=== PATIENT | male | born 1970 | race Caucasian/White ===

== ENCOUNTER 2016-04-25 18:47 | Emergency (ER) | payer OTHER, BC ==
[~2016-04-25] VITALS: Ht 180.3 cm; Wt 74.8 kg
[~2016-04-25 18:47] MED LIST: LOSA25TA4 PO; NAPR250T2 PO; ONDA4TAB7 PO; OXYC-244 PO; TAMS0.4C97 PO
[2016-04-25] MEDS ORDERED: IV NORMAL SALINE 1000ML BAG 1,000 ML IV SCH (19:30)
[2016-04-25] MEDS ORDERED: ONDANSETRON PF 4 MG/2 ML VIAL. IV ONE (19:30)
[2016-04-25] MEDS ORDERED: MORPHINE SULFATE 4 MG/ML DISP.SYRIN. IV ONE (19:30)
--- NOTE | 2016-04-25 19:30 | PHYS DOC ---
Past Medical History Past Medical History: Kidney Stone Past Surgical History: No Surgical History Alcohol Use: None Drug Use: None Adult General Chief Complaint Chief Complaint: FLANK PAIN HPI HPI Patient is a 45 year old male who presents with flank pain. Patient reports this morning ~0630 he had onset of L flank pain. He describes a diffuse achy pain in his L flank and LLQ that is similar to prior kidney stones. No clear mitigating factors. He took ibuprofen at home with insufficient relief. No urinary symptoms. Has h/o multiple stones; the last was in January. He estimates ~10 stones in the past, all have passed without intervention such as lithotripsy. No other acute complaints. Review of Systems Review of Systems Constitutional: Denies fever or chills Eyes: Denies change in visual acuity or eye pain HENT: Denies nasal congestion or sore throat Respiratory: Denies cough or shortness of breath Cardiovascular: Denies chest pain GI: LLQ pain. Denies nausea, vomiting, bloody stools or diarrhea : Denies dysuria or hematuria Musculoskeletal: L flank pain Integument: Denies rash or skin lesions Neurologic: Denies headache, focal weakness or sensory changes Current Medications Current Medications Current Medications Medications (Trade) Dose Ordered Sig/Monica Start Time Stop Time Status Last Admin Dose Admin Hydromorphone HCl (Dilaudid) 1 mg 1X ONCE 04/25/16 21:30 04/25/16 21:31 DC 04/25/16 21:28 1 MG Ketorolac Tromethamine (Toradol) 15 mg 1X ONCE 04/25/16 20:15 04/25/16 20:16 DC 04/25/16 20:15 15 MG Morphine Sulfate 4 mg 1X ONCE 04/25/16 19:30 04/25/16 19:34 DC 04/25/16 19:54 4 MG Ondansetron HCl (Zofran) 4 mg 1X ONCE 04/25/16 19:30 04/25/16 19:34 DC 04/25/16 19:53 4 MG Sodium Chloride (Iv Sodium Chloride 0.9% 1000ml Bag) 1,000 ml @ 1,000 mls/hr Q1H 04/25/16 19:30 04/25/16 20:29 DC 04/25/16 19:53 1,000 MLS/HR Allergies Allergies Allergies Coded Allergies Type Severity Reaction Last Updated Verified No Known Drug Allergies 07/14/15 No Physical Exam Physical Exam Constitutional: Well developed, well nourished, no acute distress, non-toxic appearance HENT: Normocephalic, atraumatic, bilateral external ears normal Eyes: EOMI, conjunctiva normal, no discharge Neck: Normal range of motion, no stridor Cardiovascular: Tachycardic, regular rhythm, no murmur Lungs & Thorax: Bilateral breath sounds clear to auscultation Abdomen: Bowel sounds normal, soft, non-distended, LLQ TTP without guarding or rebound Skin: Warm, dry, no erythema, no rash Back: L CVA tenderness Extremities: No obvious deformity, no edema Neurologic: Alert and oriented X 3, no gross deficits noted Current Patient Data Vital Signs Vital Signs Date Time Temp Pulse Resp B/P Pulse Ox O2 Delivery O2 Flow Rate FiO2 04/25/16 22:12 92 19 150/97 97 04/25/16 21:28 Room Air 04/25/16 19:10 98.8 98.8 Lab Values Laboratory Tests Test 04/25/16 19:45 04/25/16 20:35 White Blood Count 12.8x10^3/uL (4.0-11.0) H Red Blood Count 5.11x10^6/uL (4.30-5.70) Hemoglobin 15.6g/dL (13.0-17.5) Hematocrit 45.4% (39.0-53.0) Mean Corpuscular Volume 89fL (79-100) Mean Corpuscular Hemoglobin 31pg (25-35) Mean Corpuscular Hemoglobin Concent 34g/dL (31-37) Red Cell Distribution Width 12.7% (11.5-14.5) Platelet Count 251x10^3/uL (140-400) Neutrophils (%) (Auto) 83% (31-73) H Lymphocytes (%) (Auto) 11% (24-48) L Monocytes (%) (Auto) 5% (0-9) Eosinophils (%) (Auto) 0% (0-3) Basophils (%) (Auto) 1% (0-3) Neutrophils # (Auto) 10.6x10^3uL (1.8-7.7) H Lymphocytes # (Auto) 1.4x10^3/uL (1.0-4.8) Monocytes # (Auto) 0.6x10^3/uL (0.0-1.1) Eosinophils # (Auto) 0.0x10^3/uL (0.0-0.7) Basophils # (Auto) 0.1x10^3/uL (0.0-0.2) Sodium Level 141mmol/L (136-145) Potassium Level 3.9mmol/L (3.5-5.1) Chloride Level 102mmol/L (98-107) Carbon Dioxide Level 24mmol/L (21-32) Anion Gap 15 (6-14) H Blood Urea Nitrogen 22mg/dL (8-26) Creatinine 1.2mg/dL (0.7-1.3) Estimated GFR (Cockcroft-Gault) 66.1 Glucose Level 101mg/dL (70-99) H Calcium Level 10.3mg/dL (8.5-10.1) H Urine Collection Type Unknown Urine Color Yellow Urine Clarity Clear Urine pH 5.5 Urine Specific [place] <=1.005 Urine Protein Negativemg/dL (NEG-TRACE) Urine Glucose (UA) Negativemg/dL (NEG) Urine Ketones (Stick) 15mg/dL (NEG) Urine Blood Large (NEG) Urine Nitrite Negative (NEG) Urine Bilirubin Negative (NEG) Urine Urobilinogen Dipstick 0.2mg/dL (0.2 mg/dL) Urine Leukocyte Esterase Negative (NEG) Urine RBC 11-20/HPF (0-2) Urine WBC 0/HPF (0-4) Urine Bacteria 0/HPF (0-FEW) Urine Mucus Slight/LPF Laboratory Tests 04/25/16 19:45 Laboratory Tests 04/25/16 19:45 EKG EKG [] Radiology/Procedures Radiology/Procedures Left renal US: IMPRESSION 1. There is mild left hydronephrosis and hydroureter. There is likely calculus of the left kidney, also separate echogenic focus which may be due to angiomyolipoma. Course & Med Decision Making Course & Med Decision Making Pertinent Labs and Imaging studies reviewed. (See chart for details) Patient is 45 year old male who presents with L flank pain. Suspect kidney stone , especially given h/o same. Will check labs, UA. Will obtain renal US so as to avoid ionizing radiation (patient estimates ~10 CT scans of his abdomen for past stones). IVF bolus, pain meds, nausea meds ordered. Imaging results as above. UA shows hematuria but no evidence of infection. Labs notable for mild leukocytosis. Creatinine at baseline. Discussed results with patient. Patient required multiple dose of IV pain medication to adequately control pain; after the final dose he says pain significantly improved. Discussed option of discharge with urology follow up as outpatient and oral meds to control symptoms vs admission for pain control with IV meds. Patient would like to go home and try to control pain at home. As such, will discharge with rx for percocet, naproxen, flomax, zofran ODT. Patient given instructions for close follow up with urology and strict return precautions if pain uncontrolled or if new symptoms develop. Dragon Disclaimer Dragon Disclaimer This electronic medical record was generated, in whole or in part, using a voice recognition dictation system. Departure Departure Impression: Primary Impression: Kidney stone Disposition: HOME, SELF-CARE Condition: IMPROVED Referrals: KERA KELLY DO (PCP) RIVER KLEIN DO Patient Instructions: Kidney Stones Additional Instructions: Thank you for allowing us to provide care today in the Emergency Department. Take the provided medication as directed. Use caution after taking the narcotic pain medication as it can make you drowsy. Schedule a follow up appointment with a urologist (Dr. Klein) using the provided contact information as soon as possible. Return promptly to the Emergency Department if you develop any new or concerning symptoms. Scripts Ondansetron (Zofran Odt)4 Mg Tab.rapdis1 Tab SL Q8HRS PRN NAUSEA #15 TAB Prov:BENJAMIN OLIVEROS MD 04/25/16 Tamsulosin Hcl (Flomax)0.4 Mg Cap.er.24h0.4 Mg PO DAILY #14 TAB Prov:BENJAMIN OLIVEROS MD 04/25/16 Oxycodone/Apap 5-325 (Percocet 5-325 Mg Tablet)1 Each Tablet1-2 Tab PO Q6HRS PRN PAIN #30 TAB Prov:BENJAMIN OLIVEROS MD 04/25/16 Naproxen 375 Mg Kojxea644 Mg PO BID PRN PAIN #20 Prov:BENJAMIN OLIVEROS MD 04/25/16 BENJAMIN OLIVEROS MD Apr 25, 2016 19:29
[2016-04-25 19:52] LABS: BASO # 0.1 x10^3/uL (0.0-0.2); BASO % 1 % (0-3); EOS % 0 % (0-3); HEMATOCRIT 45.4 % (39.0-53.0); HEMOGLOBIN 15.6 g/dL (13.0-17.5); LYMPH # 1.4 x10^3/uL (1.0-4.8); LYMPH % 11 % (24-48); MEAN CORPUSCULAR HEMOGLOBIN 31 pg (25-35); MEAN CORPUSCULAR HGB CONC 34 g/dL (31-37); MEAN CORPUSCULAR VOLUME 89 fL (79-100); MONO % 5 % (0-9); NEUT % 83 % (31-73); PLATELET COUNT 251 x10^3/uL (140-400); RED BLOOD COUNT 5.11 x10^6/uL (4.30-5.70); RED CELL DISTRIBUTION WIDTH 12.7 % (11.5-14.5); WHITE BLOOD COUNT 12.8 x10^3/uL (4.0-11.0)
[2016-04-25 20:03] LABS: CALCIUM 10.3 mg/dL (8.5-10.1); CREATININE 1.2 mg/dL (0.7-1.3); GFR 66.1; POTASSIUM 3.9 mmol/L (3.5-5.1)
[2016-04-25] MEDS ORDERED: KETOROLAC 15 MG/ML VIAL. IV ONE (20:15)
[2016-04-25] MEDS ORDERED: HYDROMORPHONE 2 MG/ML VIAL. IV ONE ×2 (20:15→21:30)
--- NOTE | 2016-04-25 20:26 | RAD ---
PROCEDURE Left renal ultrasound HISTORY Left flank pain for 13 hours COMPARISON None FINDINGS Multiple sonographic images of the left kidney and urinary bladder are submitted. Right kidney was not imaged. Left kidney measured up to 12.4 by 4.9 x 6 centimeters. There is mild left hydronephrosis, also mild proximal left hydroureter. There is echogenic focus of the midpole left kidney up to 0.5 centimeters, probably calculus as there is some shadowing. There is also echogenic focus of the mid to inferior left kidney up to 0.7 cm greatest dimension. Urinary bladder morphology is within normal limits. Ureteral jets are seen bilaterally in the urinary bladder lumen. IMPRESSION 1. There is mild left hydronephrosis and hydroureter. There is likely calculus of the left kidney, also separate echogenic focus which may be due to angiomyolipoma. Electronically signed by: Ata Pabon MD (Apr 25, 2016 20:25:35)
[2016-04-25 20:54] LABS: BILIRUBIN,URINE NEGATIVE (NEG); GLUCOSE,URINE NEGATIVE (NEG); NITRITE,URINE NEGATIVE (NEG); PH,URINE 5.5; PROTEIN,URINE NEGATIVE (NEG-TRACE); UROBILINOGEN,URINE 0.2 mg/dL (0.2 mg/dL)
[2016-04-25 20:55] LABS: BACTERIA,URINE 0 /HPF (0-FEW); WBC,URINE 0 /HPF (0-4)
[2016-04-25 22:12] VITALS: BP 150/97
[2016-04-25] MEDS ORDERED: NAPR375T3 PO (22:22)
[2016-04-25] MEDS ORDERED: ONDA4TAB10 SL (22:22)
[2016-04-25] MEDS ORDERED: OXYC-323 PO (22:22)
[2016-04-25] MEDS ORDERED: TAMS0.4C97 PO (22:22)
== END 2016-04-25 22:50 | disposition home or self-care (01) ==
LOC: ER 18:47
DX: N20.0 Calculus of kidney (principal)
CPT/HCPCS: 36415; 76775; 80048; 81001; 85027; 96361; 96374; 96375; 96376; 99285; J1170; J1885; J2270; J2405; J7030

== ENCOUNTER 2016-04-26 21:46 | Inpatient (IN) | payer OTHER, BC ==
[~2016-04-26] VITALS: Ht 180.3 cm; Wt 79.5 kg
[~2016-04-26 21:46] MED LIST changes: +NAPR375T3 PO; +ONDA4TAB10 SL; +OXYC-323 PO
[2016-04-26] MEDS ORDERED: IV NORMAL SALINE 1000ML BAG 1,000 ML IV SCH (23:00)
[2016-04-26] MEDS ORDERED: ONDANSETRON PF 4 MG/2 ML VIAL. IV ONE (23:00)
[2016-04-26 23:07] LABS: BILIRUBIN,URINE NEGATIVE (NEG); GLUCOSE,URINE NEGATIVE (NEG); NITRITE,URINE NEGATIVE (NEG); PH,URINE 5.5; PROTEIN,URINE NEGATIVE (NEG-TRACE); UROBILINOGEN,URINE 0.2 mg/dL (0.2 mg/dL)
[2016-04-26] MEDS: MORPHINE SULFATE 4 MG/ML DISP.SYRIN. IV/SQ PRN (23:12)
[2016-04-26 23:19] LABS: BACTERIA,URINE 0 /HPF (0-FEW); SQUAMOUS EPITHELIAL CELL,UR FEW /LPF
[2016-04-26 23:25] LABS: BASO # 0.1 x10^3/uL (0.0-0.2); BASO % 1 % (0-3); EOS % 1 % (0-3); HEMATOCRIT 41.8 % (39.0-53.0); HEMOGLOBIN 14.4 g/dL (13.0-17.5); LYMPH # 2.1 x10^3/uL (1.0-4.8); LYMPH % 19 % (24-48); MEAN CORPUSCULAR HEMOGLOBIN 31 pg (25-35); MEAN CORPUSCULAR HGB CONC 34 g/dL (31-37); MEAN CORPUSCULAR VOLUME 90 fL (79-100); MONO % 9 % (0-9); NEUT % 71 % (31-73); PLATELET COUNT 203 x10^3/uL (140-400); RED BLOOD COUNT 4.65 x10^6/uL (4.30-5.70); RED CELL DISTRIBUTION WIDTH 13.1 % (11.5-14.5); WHITE BLOOD COUNT 11.2 x10^3/uL (4.0-11.0)
[2016-04-26 23:37] LABS: CALCIUM 9.3 mg/dL (8.5-10.1); CREATININE 1.8 mg/dL (0.7-1.3); GFR 41.4; POTASSIUM 3.8 mmol/L (3.5-5.1)
[2016-04-26 23:43] LABS: ALBUMIN 4.1 g/dL (3.4-5.0); ALBUMIN/GLOBULIN RATIO 1.1 (1.0-1.7); TOTAL BILIRUBIN 0.6 mg/dL (0.2-1.0); TOTAL PROTEIN 7.7 g/dL (6.4-8.2)
--- NOTE | 2016-04-26 23:56 | RAD ---
PROCEDURE CT abdomen and pelvis without contrast HISTORY Left flank pain, history of renal calculi TECHNIQUE Exposure: One or more of the following individualized dose reduction techniques were utilized for this exam: 1. Automated exposure control. 2. Adjustment of the mA and/or kV according to patient size. 3. Use of iterative reconstruction technique. Helical noncontrast CT imaging of the abdomen and pelvis was acquired COMPARISON No prior FINDINGS Abdomen: Bilateral nephrolithiasis with small renal calculi measuring 2-3 millimeters in size. Mild left renal hydronephrosis associated with a 3 millimeter ureterovesical junction calculus with perinephric and periureteral edema. Liver, gallbladder, spleen, adrenals and pancreas are unremarkable. No bowel obstruction or inflammation. The appendix is not identified. Mild distention of the lower abdominal small bowel loops could represent mild ileus due to ureteral inflammation. Aorta and iliac artery calcified plaque. No abdominal free fluid. Lung bases and bones are unremarkable. Pelvis: 3 millimeter left ureterovesical junction calculus. Prostate, rectum and bones are unremarkable. No pelvic fluid. IMPRESSION 1. Mild left renal hydronephrosis and perinephric and periureteral edema due to a 3 millimeter ureterovesical junction calculus. 2. Bilateral nephrolithiasis. Electronically signed by: Kai Zamora MD (Apr 26, 2016 23:55:21)
[2016-04-27] MEDS: MORPHINE SULFATE 4 MG/ML DISP.SYRIN. IV/SQ PRN (00:30)
[2016-04-27] MEDS ORDERED: HYDROMORPHONE 2 MG/ML VIAL. IV ONE (01:00)
[2016-04-27] MEDS ORDERED: KETOROLAC 15 MG/ML VIAL. IV PRN (01:30)
[2016-04-27] MEDS ORDERED: ACETAMINOPHEN 325 MG TABLET. PO PRN (01:30)
[2016-04-27] MEDS ORDERED: ONDANSETRON PF 4 MG/2 ML VIAL. IV PRN (01:30)
--- NOTE | 2016-04-27 01:40 | ED.ADGEN ---
Past Medical History Past Medical History: Hypertension, Kidney Stone Past Surgical History: Tonsillectomy Alcohol Use: None Drug Use: None Adult General Chief Complaint Chief Complaint: FLANK PAIN HPI HPI Patient is a 45 year old man, history of hypertension, renal calculi, who presents to the emergency department with complaint of persistent abdominal pain despite analgesia after a visit to the emergency department yesterday which revealed evidence of recurrent left-sided renal calculi. Patient states pain began earlier that day, located in the left abdomen and left flank, denies any fevers or chills, complains of nausea but no vomiting, no diarrhea. Denies any injuries. States he been using Flomax, Percocet at home without relief. Has not previously required lithotripsy and does not have a urologist. States he was taking medications as directed. Noted to be uncomfortable in appearance, hypertensive in the emergency department. Review of Systems Review of Systems Constitutional: Denies fever or chills. [] Eyes: Denies change in visual acuity. [] HENT: Denies nasal congestion or sore throat. [] Respiratory: Denies cough or shortness of breath. [] Cardiovascular: Denies chest pain or edema. [] GI: Denies vomiting, bloody stools or diarrhea. [] Left lower quadrant and left flank abdominal pain. : Denies dysuria. [] Musculoskeletal: Denies back pain or joint pain. [] Integument: Denies rash. [] Neurologic: Denies headache, focal weakness or sensory changes. [] Endocrine: Denies polyuria or polydipsia. [] Lymphatic: Denies swollen glands. [] Psychiatric: Denies depression or anxiety. [] Current Medications Current Medications Current Medications Medications (Trade) Dose Ordered Sig/Monica Start Time Stop Time Status Last Admin Dose Admin Morphine Sulfate 4 mg 4 mg PRN Q15MIN PRN 04/26/16 23:00 04/27/16 03:00 04/27/16 00:30 4 MG Ondansetron HCl (Zofran) 4 mg 1X ONCE 04/26/16 23:00 04/26/16 23:01 DC 04/26/16 23:12 4 MG Sodium Chloride (Iv Sodium Chloride 0.9% 1000ml Bag) 1,000 ml @ 1,000 mls/hr Q1H 04/26/16 23:00 04/26/16 23:59 DC 04/26/16 23:11 1,000 MLS/HR Allergies Allergies Allergies Coded Allergies Type Severity Reaction Last Updated Verified No Known Drug Allergies 07/14/15 No Physical Exam Physical Exam Constitutional: Well developed, well nourished, no acute distress, non-toxic appearance. [] HENT: Normocephalic, atraumatic, bilateral external ears normal, oropharynx moist, no oral exudates, nose normal. [] Eyes: PERRLA, EOMI, conjunctiva normal, no discharge. [] Neck: Normal range of motion, no tenderness, supple, no stridor. [] Cardiovascular:Heart rate regular rhythm, no murmur [] Lungs & Thorax: Bilateral breath sounds clear to auscultation [] Abdomen: Bowel sounds normal, soft, left lower quadrant tenderness palpation, no rebound, rigidity, no guarding, no masses, no pulsatile masses. [] Skin: Warm, dry, no erythema, no rash. [] Back: No midline or paraspinal tenderness, left-sided CVA tenderness. Extremities: No tenderness, no cyanosis, no clubbing, ROM intact, no edema. [] Neurologic: Alert and oriented X 3, normal motor function, normal sensory function, no focal deficits noted. [] Psychologic: Affect normal, judgement normal, mood normal. [] Current Patient Data Vital Signs Vital Signs Date Time Temp Pulse Resp B/P Pulse Ox O2 Delivery O2 Flow Rate FiO2 04/27/16 00:32 95 18 195/113 98 Room Air 04/26/16 23:18 98.0 98.0 Lab Values Laboratory Tests Test 04/26/16 22:25 04/26/16 23:15 Urine Collection Type Unknown Urine Color Yellow Urine Clarity Cloudy Urine pH 5.5 Urine Specific [place] 1.010 Urine Protein Negativemg/dL (NEG-TRACE) Urine Glucose (UA) Negativemg/dL (NEG) Urine Ketones (Stick) Negativemg/dL (NEG) Urine Blood Negative (NEG) Urine Nitrite Negative (NEG) Urine Bilirubin Negative (NEG) Urine Urobilinogen Dipstick 0.2mg/dL (0.2 mg/dL) Urine Leukocyte Esterase Negative (NEG) Urine RBC 1-2/HPF (0-2) Urine WBC 1-4/HPF (0-4) Urine Squamous Epithelial Cells Few/LPF Urine Bacteria 0/HPF (0-FEW) White Blood Count 11.2x10^3/uL (4.0-11.0) H Red Blood Count 4.65x10^6/uL (4.30-5.70) Hemoglobin 14.4g/dL (13.0-17.5) Hematocrit 41.8% (39.0-53.0) Mean Corpuscular Volume 90fL (79-100) Mean Corpuscular Hemoglobin 31pg (25-35) Mean Corpuscular Hemoglobin Concent 34g/dL (31-37) Red Cell Distribution Width 13.1% (11.5-14.5) Platelet Count 203x10^3/uL (140-400) Neutrophils (%) (Auto) 71% (31-73) Lymphocytes (%) (Auto) 19% (24-48) L Monocytes (%) (Auto) 9% (0-9) Eosinophils (%) (Auto) 1% (0-3) Basophils (%) (Auto) 1% (0-3) Neutrophils # (Auto) 7.9x10^3uL (1.8-7.7) H Lymphocytes # (Auto) 2.1x10^3/uL (1.0-4.8) Monocytes # (Auto) 1.0x10^3/uL (0.0-1.1) Eosinophils # (Auto) 0.1x10^3/uL (0.0-0.7) Basophils # (Auto) 0.1x10^3/uL (0.0-0.2) Sodium Level 141mmol/L (136-145) Potassium Level 3.8mmol/L (3.5-5.1) Chloride Level 104mmol/L (98-107) Carbon Dioxide Level 28mmol/L (21-32) Anion Gap 9 (6-14) Blood Urea Nitrogen 23mg/dL (8-26) Creatinine 1.8mg/dL (0.7-1.3) H Estimated GFR (Cockcroft-Gault) 41.4 BUN/Creatinine Ratio 13 (6-20) Glucose Level 118mg/dL (70-99) H Calcium Level 9.3mg/dL (8.5-10.1) Total Bilirubin 0.6mg/dL (0.2-1.0) Aspartate Amino Transferase (AST) 20U/L (15-37) Alanine Aminotransferase (ALT) 29U/L (16-63) Alkaline Phosphatase 63U/L (46-116) Total Protein 7.7g/dL (6.4-8.2) Albumin 4.1g/dL (3.4-5.0) Albumin/Globulin Ratio 1.1 (1.0-1.7) Laboratory Tests 04/26/16 23:15 Laboratory Tests 04/26/16 23:15 EKG EKG ECG: Rhythm strip: Sinus rhythm, heart rate 110 beats minute, no ectopy. As interpreted by me. [] Radiology/Procedures Radiology/Procedures [] Impressions: [facility] [address] [place], [place] [id number] IMAGING REPORT Signed PATIENT: AMINATA YOUNG ACCOUNT: [id number] : 1970 LOCATION: ER AGE: 45 SEX: M EXAM STATUS: REG ER ORD. PHYSICIAN: YUNIER LYLES DO REASON: L flank pain/hx calculi PROCEDURE: ABDOMEN PELVIS WO CONTRAST PROCEDURE CT abdomen and pelvis without contrast HISTORY Left flank pain, history of renal calculi TECHNIQUE Exposure: One or more of the following individualized dose reduction techniques were utilized for this exam: 1. Automated exposure control. 2. Adjustment of the mA and/or kV according to patient size. 3. Use of iterative reconstruction technique. Helical noncontrast CT imaging of the abdomen and pelvis was acquired COMPARISON No prior FINDINGS Abdomen: Bilateral nephrolithiasis with small renal calculi measuring 2-3 millimeters in size. Mild left renal hydronephrosis associated with a 3 millimeter ureterovesical junction calculus with perinephric and periureteral edema. Liver, gallbladder, spleen, adrenals and pancreas are unremarkable. No bowel obstruction or inflammation. The appendix is not identified. Mild distention of the lower abdominal small bowel loops could represent mild ileus due to ureteral inflammation. Aorta and iliac artery calcified plaque. No abdominal free fluid. Lung bases and bones are unremarkable. Pelvis: 3 millimeter left ureterovesical junction calculus. Prostate, rectum and bones are unremarkable. No pelvic fluid. IMPRESSION 1. Mild left renal hydronephrosis and perinephric and periureteral edema due to a 3 millimeter ureterovesical junction calculus. 2. Bilateral nephrolithiasis. Electronically signed by: Elsie Zamora MD (Apr 26, 2016 23:55:21) DICTATED and SIGNED BY: ELSIE ZAMORA MD DATE: 04/26/16 9102 CC: YUNIER LYLES DO; KERA KELLY DO ~ Course & Med Decision Making Course & Med Decision Making Pertinent Labs and Imaging studies reviewed. (See chart for details) Ultrasound findings yesterday reviewed, patient noted to have mild hydronephrosis, mild leukocytosis at 12.8 also noted at that time, no evidence of infection in the urine. After discussion with patient, as his symptoms have worsened, we'll proceed with repeat CT scan of the abdomen, risk versus benefit of radiation as discussed. CT reveals mild hydronephrosis again, with a 3 mm obstructing stone, creatinine is slightly elevated at 1.8, leukocytosis has improved, patient again has no evidence of infection in the urine. Patient is received multiple doses of morphine, and a dose of Dilaudid in the ED, and is continuing to complain of severe pain. As he has failed outpatient treatment, and has required repetitive dosing of IV agents, will admit to the hospital for continued symptom management. Findings as above discussed with Dr. Lewis of internal medicine, patient accepted to her service as a full admission to the medical surgical floor with plan as stated. Dragon Disclaimer Dragon Disclaimer This electronic medical record was generated, in whole or in part, using a voice recognition dictation system. Departure Impression: Primary Impression: Kidney stone Additional Impression: Intractable pain Disposition: ADMITTED INPATIENT Condition: IMPROVED Problem Qualifiers YUNIER LYLES DO Apr 27, 2016 01:40
[2016-04-27] MEDS: IV NORMAL SALINE 1000ML BAG 1,000 ML IV SCH ×2 (02:19→10:32)
[2016-04-27] MEDS: FENTANYL PF 100 MCG/2 ML VIAL. IV PRN ×2 (02:36→03:25)
[2016-04-27 03:15] VITALS: BP 149/99
[2016-04-27] MEDS ORDERED: LOSA50TA2 PO (03:58)
[2016-04-27 07:00] VITALS: BP 135/91
[2016-04-27 11:00] VITALS: BP 138/97
--- NOTE | 2016-04-27 11:42 | PDOC ---
Provider Note Provider Note Urology: Consult dictated, if he goes home today he is to call me Thursday with f/u report RE; flank pain etc., may need to put him on OP surgery schedule My office # [phone] Thank-you, RIVER KLEIN DO Apr 27, 2016 11:42
[2016-04-27 12:27] VITALS: BP 138/97
[2016-04-27] MEDS ORDERED: LOSARTAN POTASSIUM 50 MG TABLET. PO SCH (12:30)
--- NOTE | 2016-04-27 18:04 | SSS ---
ADMIT DATE: 04/27/2016 CHIEF COMPLAINT: Flank pain. HISTORY OF PRESENT ILLNESS: The patient is a 45-year-old gentleman with history of renal stones who presented to the Emergency Room 2 days ago with flank pain and was diagnosed with multiple kidney stones and discharged with pain medication regimen. He, however, represented yesterday with the same complaints, worsening, not responding to p.o. meds and he was therefore admitted to get better control on his pain. By CT, a 3 mm stone was found in the ureterovesicular junction. This morning, the patient is actually doing much better, has not had any pain medication for the past 5 hours. PAST MEDICAL HISTORY: Renal stones, recurrent. FAMILY HISTORY: Father with renal stones as well. SOCIAL HISTORY: Lives with his and 3 daughters. No toxic habits. ALLERGIES: No known drug allergies. MEDICATIONS: MAR reconciled with home medications. REVIEW OF SYSTEMS: Essentially positive for flank pain, no hematuria that he could tell. Denies any dysuria, nausea, vomiting or other GI symptoms. Rest of 14 system review is totally normal. PHYSICAL EXAMINATION: VITAL SIGNS: This morning show a blood pressure of 135/91, heart rate of 102, respiratory rate 20. He is afebrile. GENERAL: This is a 45-year-old gentleman, well nourished, well developed, alert and oriented, in no acute distress. HEENT: Shows no scleral icterus. NECK: Supple, without any palpable lymphadenopathy. LUNGS: Clear to auscultation bilaterally. CARDIOVASCULAR: Regular rate and rhythm. ABDOMEN: Has positive bowel sounds, soft, nontender. Minimal tenderness to palpation on the left flank to percussion. EXTREMITIES: Show no edema, no clubbing, no cyanosis. SKIN: Warm, soft and dry. LABORATORY DATA: CBC with a WBC of 11.2, hemoglobin 14.4, platelets of 203. Chemistries with a BUN and creatinine of 23 and 1.8. Electrolytes within normal limits. LFTs within normal. Albumin is 4.1. Urine with trace blood. IMAGING STUDIES: CT of the abdomen and pelvis showed a mild left renal hydronephrosis and perinephric and periureteral edema due to a 3 mm ureterovesical junction calculus, bilateral nephrolithiasis. ASSESSMENT AND PLAN: The patient is a 45-year-old gentleman with recurrent kidney stones, now presenting in renal colic. It appears that he may have passed a stone earlier today as pain is resolved. Urology consult had been requested, but with resolution of his symptoms, it is no longer required. He will follow up with Dr. Feldman on an outpatient basis. He does have mild renal insufficiency, most likely related to the hydronephrosis. Advised him to drink plenty of fluids and this should resolve. DATE OF DISCHARGE: 04/27/2016. DISCHARGE DISPOSITION: To home. DISCHARGE CONDITION: Improved. DISCHARGE DIAGNOSES: Renal colic. DISCHARGE MEDICATIONS: Resume home medications. DISCHARGE INSTRUCTIONS: The patient will follow up with Dr. Feldman in 2 weeks. He will follow up with his PCP as needed. EUGENIA VELÁSQUEZ MD DR: ÁNGELA/nts JOB#: [id number] / [id number] KERA Infante DO MTDDave
[2016-04-27] MEDS ORDERED: TAMSULOSIN 0.4 MG CAP.ER.24H. PO SCH (21:00)
--- NOTE | 2016-04-27 23:58 | CONS ---
DATE OF CONSULTATION: 04/27/2016 CHIEF COMPLAINT: Acute left flank pain, distal left ureteral calculus. HISTORY OF PRESENT ILLNESS: A 45-year-old male with a history of kidney stones. He thinks he has had about 10 over the years. He was seen in the Emergency Room, evaluated and sent home on Flomax and pain medicine. His flank pain intensified and he had to come back to the Emergency Room at which time he was admitted for IV hydration and pain control. Evidently, the patient has passed all of his previous kidney stones and did not require any intervention. PAST MEDICAL HISTORY: Significant for hypertension and kidney stones. PAST SURGICAL HISTORY: He has had a tonsillectomy. MEDICATIONS: List was reviewed. ALLERGIES: No known drug allergies. PHYSICAL EXAMINATION: GENERAL DESCRIPTION: A 45-year-old male resting comfortably, states he has not had any pain this morning. ABDOMEN: Soft, nontender. Negative for flank pain to palpation bilaterally. There are no palpable abdominal masses. No suprapubic tenderness. RECTAL: Not performed today. MUSCULOSKELETAL: Good range of motion. Negative for cyanosis or edema. LABORATORY DATA: The patient's white blood cell count slightly elevated at 11.2. His hemoglobin 14.4, hematocrit 41.8, platelet count was adequate. The patient's electrolytes were normal. His creatinine was elevated at 1.8 and his BUN was 23, glucose 118. Urinalysis, manoj in color, 1-2 red blood cells per high power field, 1-4 white blood cells, negative for bacteria. X-RAY STUDIES: Noncontrast CT scan was performed which reveals mild left renal hydronephrosis and a 3-mm calculus at the left ureterovesical junction. The patient also has bilateral nephrolithiasis. IMPRESSION: 1. Acute left renal colic -- improved. 2. Distal left ureteral calculus 3 mm at ureterovesical junction. 3. Bilateral nephrolithiasis. PLAN: 1. The patient is asymptomatic this morning. If he remains asymptomatic, he should be able to go home on Flomax and pain medicine and push the fluids. I have asked him to call me the following day to let me know if he passes stone and if his pain is completely resolved. If not, I will put him on outpatient schedule for ureteroscopy, stone extraction. 2. He needs a metabolic workup which we can do in the office given his history of multiple kidney stones and the fact that he has bilateral nephrolithiasis. It was discussed with the patient. He appears to understand and is agreeable. Thank you for the opportunity to participate in evaluation of this patient. RIVER KLEIN DO DR: Cindy JOB#: [id number] / [id number]
[2016-04-28] MEDS ORDERED: LOSARTAN POTASSIUM 50 MG TABLET. PO SCH (09:00)
== END 2016-04-27 13:55 | disposition home or self-care (01) | DRG 694 ==
LOC: ER 21:46 → 4 NORTH 04-27 00:49
PROVIDERS: ADMIT Internal Medicine Hematology & Oncology; ATTEND Internal Medicine Hematology & Oncology
DX: N13.2 Hydronephrosis with renal and ureteral calculous obstruction (principal); I10 Essential (primary) hypertension; Z87.442 Personal history of urinary calculi; Z98.890 Other specified postprocedural states; Z79.899 Other long term (current) drug therapy
CPT/HCPCS: 36415; 74176; 80053; 81001; 85027; J1170; J1885; J2270; J2405; J3010; J7030; 99285-25

== ENCOUNTER 2018-09-24 13:52 | Emergency (ER) | payer OTHER, BC ==
[~2018-09-24] VITALS: Ht 180.3 cm; Wt 77.1 kg
[~2018-09-24 13:52] MED LIST changes: +LOSA-73 PO; -LOSA25TA4 PO; +LOSA25TA54 PO; +NAPR-695 PO; -NAPR250T2 PO; +NAPR250T6 PO; -NAPR375T3 PO; -OXYC-244 PO; -OXYC-323 PO; +OXYC1TAB15 PO; +OXYC1TAB19 PO
--- NOTE | 2018-09-24 15:14 | PHYS DOC ---
Past Medical History Past Medical History: Hypertension, Kidney Stone Past Surgical History: Tonsillectomy Alcohol Use: None Drug Use: None Adult General Chief Complaint Chief Complaint: FLANK PAIN [facility] HPI Patient is a 47 year old male with history of kidney stones acute onset right lower flank pain radiating to right pelvis. Symptom onset was 2 hours ago. Pain is rated moderate to severe and is not worse with position change, movement or palpation. Patient denies nausea, chills sweats fever. No hematuria, urinary frequency urgency or any area. Previous kidney stones. Patient has passed up to 10 kidney stones previously and has not required intervention. [] Review of Systems Review of Systems ROS as per HPI All other systems were reviewed and found to be within normal limits, except as documented in this note. Current Medications Current Medications Current Medications Medications (Trade) Dose Ordered Sig/Monica Start Time Stop Time Status Last Admin Dose Admin Fentanyl Citrate (Fentanyl 2ml Vial) 75 mcg 1X ONCE 09/24/18 15:15 09/24/18 15:16 DC 09/24/18 15:29 75 MCG Hydromorphone HCl (Dilaudid) 1 mg 1X ONCE 09/24/18 17:30 09/24/18 17:31 DC 09/24/18 17:47 1 MG Ketorolac Tromethamine (Toradol 30mg Vial) 30 mg 1X ONCE 09/24/18 15:15 09/24/18 15:16 DC 09/24/18 15:28 30 MG Ondansetron HCl (Zofran) 4 mg 1X ONCE 09/24/18 15:15 09/24/18 15:16 DC 09/24/18 15:28 4 MG Allergies Allergies Allergies Coded Allergies Type Severity Reaction Last Updated Verified No Known Drug Allergies 07/14/15 No Physical Exam Physical Exam Constitutional: Well developed, well nourished, moderate distress secondary to pain. [] HENT: Normocephalic, atraumatic, bilateral external ears normal, oropharynx moist, no oral exudates, nose normal. [] Eyes: PERRLA, EOMI, conjunctiva normal, no discharge. [] Neck: Normal range of motion, no tenderness, supple, no stridor. [] Cardiovascular:Heart rate regular rhythm, no murmur [] Lungs & Thorax: Bilateral breath sounds clear to auscultation [] Abdomen: Bowel sounds normal, soft, no tenderness, no masses, no pulsatile masses. [] Skin: Warm, dry, no erythema, no rash. [] Back: No tenderness, no CVA tenderness. [] Extremities: No tenderness, no cyanosis, no clubbing, ROM intact, no edema. [] Neurologic: Alert and oriented X 3, normal motor function, normal sensory function, no focal deficits noted. [] Psychologic: Affect normal, judgement normal, mood normal. [] Current Patient Data Vital Signs Vital Signs Date Time Temp Pulse Resp B/P (MAP) Pulse Ox O2 Delivery O2 Flow Rate FiO2 09/24/18 17:47 20 99 Room Air 09/24/18 16:39 84 137/85 (102) 09/24/18 14:47 97.8 97.8 Lab Values Laboratory Tests Test 09/24/18 15:22 09/24/18 16:00 White Blood Count 7.2 x10^3/uL (4.0-11.0) Red Blood Count 4.83 x10^6/uL (4.30-5.70) Hemoglobin 15.4 g/dL (13.0-17.5) Hematocrit 43.6 % (39.0-53.0) Mean Corpuscular Volume 90 fL (79-100) Mean Corpuscular Hemoglobin 32 pg (25-35) Mean Corpuscular Hemoglobin Concent 35 g/dL (31-37) Red Cell Distribution Width 13.7 % (11.5-14.5) Platelet Count 297 x10^3/uL (140-400) Neutrophils (%) (Auto) 64 % (31-73) Lymphocytes (%) (Auto) 28 % (24-48) Monocytes (%) (Auto) 6 % (0-9) Eosinophils (%) (Auto) 1 % (0-3) Basophils (%) (Auto) 1 % (0-3) Neutrophils # (Auto) 4.6 x10^3uL (1.8-7.7) Lymphocytes # (Auto) 2.0 x10^3/uL (1.0-4.8) Monocytes # (Auto) 0.5 x10^3/uL (0.0-1.1) Eosinophils # (Auto) 0.1 x10^3/uL (0.0-0.7) Basophils # (Auto) 0.1 x10^3/uL (0.0-0.2) Sodium Level 140 mmol/L (136-145) Potassium Level 3.6 mmol/L (3.5-5.1) Chloride Level 102 mmol/L (98-107) Carbon Dioxide Level 24 mmol/L (21-32) Anion Gap 14 (6-14) Blood Urea Nitrogen 17 mg/dL (8-26) Creatinine 1.1 mg/dL (0.7-1.3) Estimated GFR (Cockcroft-Gault) 72.4 BUN/Creatinine Ratio 15 (6-20) Glucose Level 96 mg/dL (70-99) Calcium Level 9.8 mg/dL (8.5-10.1) Total Bilirubin 1.1 mg/dL (0.2-1.0) H Aspartate Amino Transferase (AST) 17 U/L (15-37) Alanine Aminotransferase (ALT) 26 U/L (16-63) Alkaline Phosphatase 67 U/L (46-116) Total Protein 8.2 g/dL (6.4-8.2) Albumin 4.6 g/dL (3.4-5.0) Albumin/Globulin Ratio 1.3 (1.0-1.7) Laboratory Tests 09/24/18 15:22 Laboratory Tests 09/24/18 16:00 EKG EKG [] Radiology/Procedures Radiology/Procedures [Renal ultrasound/KUB: No indirect evidence of active kidney stone.] Course & Med Decision Making Course & Med Decision Making Pertinent Labs and Imaging studies reviewed. (See chart for details) [History of recurrent stones with right flank pain radiating to right groin. No abdominal tenderness. Patient appears comfortable in presentation is consistent with kidney stone. KUB renal ultrasound performed without evidence of large obstructive stones. In terms improved with treatment. We'll continue supportive care with outpatient urology follow-up. Return precautions reviewed.] Dragon Disclaimer Dragon Disclaimer This electronic medical record was generated, in whole or in part, using a voice recognition dictation system. Departure Departure Impression: Primary Impression: Acute flank pain Additional Impression: Kidney stone on right side Disposition: HOME, SELF-CARE Condition: GOOD Referrals: KWASI ORNELAS MD (PCP) Patient Instructions: Flank Pain, [id number], Kidney Stones, [id number] Additional Instructions: Please increase fluids and strain urine for presence of kidney stones. Take pain medication nausea medication and Flomax as directed and follow-up with your urol ogist next week. Return to the ED if new or worsening symptoms. Scripts Tamsulosin Hcl (FLOMAX) 0.4 Mg Cap.er.24h 1 CAP PO DAILY, #10 CAP 11 Refills Prov: MARLIN ST DO 09/24/18 Ondansetron Hcl (ZOFRAN) 4 Mg Tablet 1 TAB PO Q6HRS, #10 TAB 0 Refills Prov: MARLIN ST DO 09/24/18 Oxycodone/Apap 5-325 (PERCOCET 5-325 MG TABLET ) 1 Each Tablet 1-2 TAB PO PRN Q6HRS PRN for PAIN, #15 TAB 0 Refills Prov: MARLIN ST DO 09/24/[address] DO Sep 24, 2018 15:14
[2018-09-24] MEDS ORDERED: fentaNYL PF VIAL 100 MCG/2 ML VIAL IV ONE (15:15)
[2018-09-24] MEDS ORDERED: ONDANSETRON PF 4 MG/2 ML VIAL. IV ONE (15:15)
[2018-09-24] MEDS ORDERED: KETOROLAC 30 MG/ML VIAL. IV ONE (15:15)
[2018-09-24 15:44] LABS: BASO # 0.1 x10^3/uL (0.0-0.2); BASO % 1 % (0-3); EOS # 0.1 x10^3/uL (0.0-0.7); EOS % 1 % (0-3); HEMATOCRIT 43.6 % (39.0-53.0); HEMOGLOBIN 15.4 g/dL (13.0-17.5); LYMPH % 28 % (24-48); MEAN CORPUSCULAR HEMOGLOBIN 32 pg (25-35); MEAN CORPUSCULAR HGB CONC 35 g/dL (31-37); MEAN CORPUSCULAR VOLUME 90 fL (79-100); MONO # 0.5 x10^3/uL (0.0-1.1); MONO % 6 % (0-9); NEUT # 4.6 x10^3uL (1.8-7.7); NEUT % 64 % (31-73); PLATELET COUNT 297 x10^3/uL (140-400); RED BLOOD COUNT 4.83 x10^6/uL (4.30-5.70); RED CELL DISTRIBUTION WIDTH 13.7 % (11.5-14.5); WHITE BLOOD COUNT 7.2 x10^3/uL (4.0-11.0)
[2018-09-24] MEDS ORDERED: HYDROmorphone 2 MG/ML VIAL IV ONE ×2 (16:15→17:30)
[2018-09-24 16:17] LABS: CALCIUM 9.8 mg/dL (8.5-10.1); CREATININE 1.1 mg/dL (0.7-1.3); GFR 72.4; POTASSIUM 3.6 mmol/L (3.5-5.1)
[2018-09-24 16:25] LABS: ALBUMIN 4.6 g/dL (3.4-5.0); ALBUMIN/GLOBULIN RATIO 1.3 (1.0-1.7); TOTAL BILIRUBIN 1.1 mg/dL (0.2-1.0); TOTAL PROTEIN 8.2 g/dL (6.4-8.2)
--- NOTE | 2018-09-24 17:06 | RAD ---
KUB History: Right flank pain Comparison: 04/26/2016 CT abdomen pelvis exam Findings: Single supine AP view abdomen is submitted. There is scattered gas in the nondilated large and small bowel. There is variable retained stool in the colon. Exam is insufficient for the evaluation for free air. There are some small right renal calculi, left renal shadow poorly seen due to stool. There is a tiny nonspecific calculus in the left pelvis. Impression: 1. There are right renal calculi. There is a tiny calculus in the left pelvis, could be a phlebolith or distal ureteral calculus. Electronically signed by: Stanley Pabon MD (09/24/2018 5:03 PM) [facility]
--- NOTE | 2018-09-24 17:11 | RAD ---
RENAL COMPLETE BILATERAL History: Right flank pain, history of stones Comparison: 04/25/2016 Findings: Multiple sonographic images of the kidneys and retroperitoneal structures are submitted. Right kidney measured 11.5 x 4.7 x 4.1 cm. Left kidney measured 11.1 x 3.8 x 4.5 cm. Inferior right kidney is suboptimally seen due to bowel gas. There is hypoechoic lesion of the superior right kidney 1.2 x 1.2 x 1.1 cm, likely a cyst with minimal internal echoes. There is no hydronephrosis of either kidney. Abdominal aortic caliber is within normal limits in greatest dimension about 2.6 cm proximally. There is segmental visualization of the inferior vena cava. Urinary bladder volume is estimated about 187 cc. Ureteral jets are seen bilaterally in the urinary bladder lumen. Impression: 1. There is no hydronephrosis of either kidney. There is a likely small cyst of the right kidney. Electronically signed by: Stanley Pabon MD (09/24/2018 5:08 PM) [id number]
[2018-09-24] MEDS ORDERED: OXYC1TAB15 PO (17:56)
[2018-09-24] MEDS ORDERED: TAMS0.4C97 PO (17:56)
[2018-09-24] MEDS ORDERED: ONDA4TAB7 PO (17:56)
[2018-09-24 18:20] LABS: BILIRUBIN,URINE NEGATIVE (NEG); CLARITY,URINE CLEAR; COLOR,URINE RED; NITRITE,URINE NEGATIVE (NEG); PH,URINE 6.5; PROTEIN,URINE 30 mg/dL (NEG-TRACE); UROBILINOGEN,URINE 0.2 mg/dL (0.2 mg/dL)
[2018-09-24 18:30] VITALS: BP 116/68
[2018-09-24 18:39] LABS: RBC,URINE TNTC /HPF (0-2)
[2018-09-24 18:40] LABS: BACTERIA,URINE 0 /HPF (0-FEW); WBC,URINE RARE /HPF (0-4)
== END 2018-09-24 19:09 | disposition home or self-care (01) ==
LOC: ER 13:52
DX: N20.0 Calculus of kidney (principal); I10 Essential (primary) hypertension
CPT/HCPCS: 36415; 74018; 76770; 80053; 81001; 85025; 87086; 96374; 96375; 96376; 99285; J1170; J1885; J2405; J3010